=== PATIENT | female | born 1980 | race Two or more races ===

== ENCOUNTER → 2020-02-08 | Outpatient (CLI) | payer SELFPAY ==
[2020-02-14 20:43] LABS: HPV APTIMA, High Risk Negative (Negative); HPV Reflexed? YES, CHARGE PATIENT
== END | disposition home or self-care (01) ==
LOC: LABSPEC 16:30
PROVIDERS: Visit Provider Student in an Organized Health Care Education/Training Program
DX: Z12.4 Encounter for screening for malignant neoplasm of cervix (principal)
CPT/HCPCS: 87624; 88175; G0145